=== PATIENT | male | born 1960 | race Caucasian/White ===

== ENCOUNTER 2017-04-09 15:18 | Emergency (ER) | payer MEDICAID ==
[~2017-04-09] VITALS: Ht 177.8 cm; Wt 78.0 kg
[~2017-04-09 15:18] MED LIST: HYDR-3535 PO; LANTUS2P SC; NOVORP2 SQ
[2017-04-09 16:04] VITALS: BP 140/67; PULSE 89; RESP 16; TEMP 98.8; O2SAT 97
[2017-04-09 16:20] VITALS: BP 150/89; PULSE 88; RESP 16; TEMP 97.9; O2SAT 95
[2017-04-09] MEDS ORDERED: PROP60CA PO (16:28)
[2017-04-09] MEDS ORDERED: CREO3000 PO (16:28)
[2017-04-09] MEDS ORDERED: SODIUM CHLOR 0.9% 1000 ML INJ 1,000 ML IV SCH (16:35)
[2017-04-09] MEDS ORDERED: ONDANSETRON HCL 4 MG/2 ML VIAL IVP ONE (16:45)
[2017-04-09] MEDS ORDERED: SODIUM CHLORIDE 0.9% FLUSH 10 ML FLUSH IV FLUSH PRN (16:45)
--- NOTE | 2017-04-09 16:46 | PD ---
HPI Chief Complaint: Abdominal Pain Time Seen by Provider: 16:22 Travel History International Travel<30 days: No Contact w/Intl Traveler<30days: No Traveled to known affect area: No History of Present Illness HPI Patient is 56-year-old male presenting to emergency evaluation of right lower quadrant abdominal pain. Patient states it started yesterday afternoon at 1 PM. He reports nausea but no vomiting, fever, chills, chest pain, shortness of breath. He states he ran out of his insulin yesterday and thinks he could have pancreatitis. Patient states the pain is abdomen is a 7 out of 10, it is aching and throbbing. He has no primary doctor at this time. He reports a history of type 2 diabetes, hepatitis C, hypertension, pancreatitis. He had been [facility] but states due to poor medical care he is not going back there. Patient smokes half a pack of cigarettes daily, he denies any alcohol or drug use. PFSH Past Medical History Cardiovascular Problems: No Cirrhosis: Yes Diabetes: Yes Patient Takes Glucophage: No Diminished Hearing: No Gastrointestinal Disorders: Yes (esophageal varices, pancreatitis) Genitourinary: No Hepatitis: Yes (C) Hypertension: Yes Musculoskeletal: Yes Neurologic: No Reproductive: No Respiratory: No Pancreatitis: Yes Past Surgical History Pacemaker: No Social History Alcohol Use: No Tobacco Use: Yes (1/2 ppd) Substance Use: No Allergies-Medications (Allergen,Severity, Reaction): Coded Allergies: codeine (Unverified Allergy, Severe, ANAPHYLAXIS, 04/09/17) penicillin G (Unverified Allergy, Severe, ANAPHYLAXIS, 04/09/17) Reported Meds & Prescriptions Reported Meds & Active Scripts Active Reported Creon (Pancrelipase) 3,000-9,500-15,000 Units Cap Unknown Dose PO TIDPC Propranolol ER 24 HR (Propranolol HCl) 60 Mg Cap Unknown Dose PO DAILY Review of Systems Except as stated in HPI: all other systems reviewed are Neg HENT: No: Headaches Cardiovascular: No: Chest Pain or Discomfort Respiratory: No: Shortness of Breath Gastrointestinal: Positive: Nausea, Abdominal Pain, No: Vomiting, Diarrhea, Changes in Bowel Habits Genitourinary: No: Dysuria Physical Exam Narrative GENERAL: Thin, well-developed, alert male. Resting comfortably in no acute distress. SKIN: Warm and dry. HEAD: Atraumatic. Normocephalic. EYES: Pupils equal and round. No scleral icterus. No injection or drainage. ENT: No nasal bleeding or discharge. Mucous membranes pink and moist. NECK: Trachea midline. No JVD. CARDIOVASCULAR: Regular rate and rhythm. RESPIRATORY: No accessory muscle use. Clear to auscultation. Breath sounds equal bilaterally. GASTROINTESTINAL: Abdomen soft, mildly tender to palpation in right lower quadrant, nondistended. Hepatic and splenic margins not palpable. Positive bowel sounds, no rebound, no guarding. MUSCULOSKELETAL: Extremities without clubbing, cyanosis, or edema. No obvious deformities. NEUROLOGICAL: Awake and alert. No obvious cranial nerve deficits. Motor grossly within normal limits. Five out of 5 muscle strength in the arms and legs. Normal speech. PSYCHIATRIC: Appropriate mood and affect; insight and judgment normal. Data Data Last Documented VS Vital Signs Date Time Temp Pulse Resp B/P (MAP) Pulse Ox O2 Delivery O2 Flow Rate FiO2 04/09/17 16:20 97.9 88 16 150/89 (109) 95 Room Air Orders Orders Complete Blood Count With Diff (04/09/17 16:07) Comprehensive Metabolic Panel (04/09/17 16:07) Urinalysis - C+S If Indicated (04/09/17 16:07) Iv Access Insert/Monitor (04/09/17 16:07) Lipase (04/09/17 16:07) Prothrombin Time / Inr (Pt) (04/09/17 16:35) Act Partial Throm Time (Ptt) (04/09/17 16:35) Ct Abd/Pel W Iv Contrast(Rout) (04/09/17 16:35) Ecg Monitoring (04/09/17 16:35) Oximetry (04/09/17 16:35) Ondansetron Inj (Zofran Inj) (04/09/17 16:45) Sodium Chlor 0.9% 1000 Ml Inj (Ns 1000 M (04/09/17 16:35) Sodium Chloride 0.9% Flush (Ns Flush) (04/09/17 16:45) Vascular Access Team Consult/P PRN (04/09/17 17:08) Vascular Poc Ultrasound (04/09/17 ) Ketorolac Inj (Toradol Inj) (04/09/17 17:30) Insulin Human Regular Inj (Novolin R Inj (04/09/17 19:00) Sodium Chlor 0.9% 1000 Ml Inj (Ns 1000 M (04/09/17 19:00) Iohexol 350 Inj (Omnipaque 350 Inj) (04/09/17 19:33) Labs Laboratory Tests Test 04/09/17 16:49 04/09/17 17:58 Urine Color LIGHT-YELLOW Urine Turbidity CLEAR Urine pH 5.5 Urine Specific [place] 1.035 Urine Protein NEG mg/dL Urine Glucose (UA) 1000 mg/dL Urine Ketones NEG mg/dL Urine Occult Blood NEG Urine Nitrite NEG Urine Bilirubin NEG Urine Urobilinogen LESS THAN 2.0 MG/DL Urine Leukocyte Esterase NEG Urine RBC LESS THAN 1 /hpf Urine WBC 1 /hpf Microscopic Urinalysis Comment CULT NOT INDICATED White Blood Count 7.1 TH/MM3 Red Blood Count 3.76 MIL/MM3 Hemoglobin 13.8 GM/DL Hematocrit 38.7 % Mean Corpuscular Volume 102.9 FL Mean Corpuscular Hemoglobin 36.7 PG Mean Corpuscular Hemoglobin Concent 35.7 % Red Cell Distribution Width 16.8 % Platelet Count 102 TH/MM3 Mean Platelet Volume 9.0 FL Neutrophils (%) (Auto) 65.1 % Lymphocytes (%) (Auto) 19.3 % Monocytes (%) (Auto) 10.0 % Eosinophils (%) (Auto) 4.5 % Basophils (%) (Auto) 1.1 % Neutrophils # (Auto) 4.6 TH/MM3 Lymphocytes # (Auto) 1.4 TH/MM3 Monocytes # (Auto) 0.7 TH/MM3 Eosinophils # (Auto) 0.3 TH/MM3 Basophils # (Auto) 0.1 TH/MM3 CBC Comment DIFF FINAL Differential Comment Prothrombin Time 12.3 SEC Prothromb Time International Ratio 1.1 RATIO Activated Partial Thromboplast Time 30.0 SEC Blood Urea Nitrogen 8 MG/DL Creatinine 0.59 MG/DL Random Glucose 434 MG/DL Total Protein 5.6 GM/DL Albumin 2.3 GM/DL Calcium Level 7.6 MG/DL Alkaline Phosphatase 292 U/L Aspartate Amino Transf (AST/SGOT) 76 U/L Alanine Aminotransferase (ALT/SGPT) 72 U/L Total Bilirubin 1.8 MG/DL Sodium Level 133 MEQ/L Potassium Level 3.9 MEQ/L Chloride Level 103 MEQ/L Carbon Dioxide Level 22.7 MEQ/L Anion Gap 7 MEQ/L Estimat Glomerular Filtration Rate 143 ML/MIN Lipase 332 U/L [facility] Medical Decision Making Medical Screen Exam Complete: Yes Emergency Medical Condition: Yes Interpretation(s) Laboratory Tests Test 04/09/17 16:49 04/09/17 17:58 Urine Color LIGHT-YELLOW Urine Turbidity CLEAR Urine pH 5.5 Urine Specific [place] 1.035 Urine Protein NEG mg/dL Urine Glucose (UA) 1000 mg/dL Urine Ketones NEG mg/dL Urine Occult Blood NEG Urine Nitrite NEG Urine Bilirubin NEG Urine Urobilinogen LESS THAN 2.0 MG/DL Urine Leukocyte Esterase NEG Urine RBC LESS THAN 1 /hpf Urine WBC 1 /hpf Microscopic Urinalysis Comment CULT NOT INDICATED White Blood Count 7.1 TH/MM3 Red Blood Count 3.76 MIL/MM3 Hemoglobin 13.8 GM/DL Hematocrit 38.7 % Mean Corpuscular Volume 102.9 FL Mean Corpuscular Hemoglobin 36.7 PG Mean Corpuscular Hemoglobin Concent 35.7 % Red Cell Distribution Width 16.8 % Platelet Count 102 TH/MM3 Mean Platelet Volume 9.0 FL Neutrophils (%) (Auto) 65.1 % Lymphocytes (%) (Auto) 19.3 % Monocytes (%) (Auto) 10.0 % Eosinophils (%) (Auto) 4.5 % Basophils (%) (Auto) 1.1 % Neutrophils # (Auto) 4.6 TH/MM3 Lymphocytes # (Auto) 1.4 TH/MM3 Monocytes # (Auto) 0.7 TH/MM3 Eosinophils # (Auto) 0.3 TH/MM3 Basophils # (Auto) 0.1 TH/MM3 CBC Comment DIFF FINAL Differential Comment Prothrombin Time 12.3 SEC Prothromb Time International Ratio 1.1 RATIO Activated Partial Thromboplast Time 30.0 SEC Blood Urea Nitrogen 8 MG/DL Creatinine 0.59 MG/DL Random Glucose 434 MG/DL Total Protein 5.6 GM/DL Albumin 2.3 GM/DL Calcium Level 7.6 MG/DL Alkaline Phosphatase 292 U/L Aspartate Amino Transf (AST/SGOT) 76 U/L Alanine Aminotransferase (ALT/SGPT) 72 U/L Total Bilirubin 1.8 MG/DL Sodium Level 133 MEQ/L Potassium Level 3.9 MEQ/L Chloride Level 103 MEQ/L Carbon Dioxide Level 22.7 MEQ/L Anion Gap 7 MEQ/L Estimat Glomerular Filtration Rate 143 ML/MIN Lipase 332 U/L Vital Signs Date Time Temp Pulse Resp B/P (MAP) Pulse Ox O2 Delivery O2 Flow Rate FiO2 04/09/17 16:20 97.9 88 16 150/89 (109) 95 Room Air 04/09/17 16:04 98.8 89 16 140/67 (91) 97 Differential Diagnosis Pancreatitis versus appendicitis versus hyperglycemia versus DKA versus metabolic abnormality versus other Narrative Course Patient is a 56-year-old male presenting for evaluation of abdominal pain. He reports being out of his insulin since yesterday, he is a type II diabetic. Patient's vital signs are stable, labs and imaging ordered and pending. Chemistry with a glucose of 434, sodium 133, bilirubin 1.8, AST 76, anion gap is normal. CBC with no acute findings Urinalysis with glycosuria at [address] scan of the abdomen and pelvis ordered and pending. When glucose resulted at 434, 10 units of regular insulin subcutaneous was ordered as well as additional IV fluids. CT abdomen and pelvis just read by the radiologist shows characteristics of severe cirrhosis and portal hypertension. Liver is small and nodular, there are cavernous transformation of portal vein with prominence of splenic it's. Mesenteric veins as well as very prominent splenorenal shunt with varus custody is identified and splenic hilum and at the base of the esophagus. Minimal abdominal ascites. Diverticular disease of the descending and sigmoid colon without diverticulitis. Findings were discussed with my attending physician, Dr. Perry. Blood glucose was reassessed at 350. Patient was given a dinner meal. He was covered with an additional 10 units of regular insulin. Patient will be provided with prescription refills of his insulins. He was advised to follow- up at the [facility] until he can establish with a new primary doctor. He was advised to return to emergency department for any new or worsening symptoms. Patient verbalized understanding of instructions. Diagnosis Primary Impression: Abdominal pain Qualified Codes: R10.31 - Right lower quadrant pain Additional Impression: Hyperglycemia due to type 2 diabetes mellitus Qualified Codes: E11.65 - Type 2 diabetes mellitus with hyperglycemia Referrals: [facility] 3 days Primary Care Physician 3 days Patient Instructions: Abdominal Pain (ED), Diabetic Hyperglycemia (ED), General Instructions, Portal Hypertension (ED) Additional Instructions: Take all medications as previously prescribed Check blood glucose before meals and before bedtime, continue insulin as previously prescribed Follow-up with the [facility] Return to emergency department for any new or worsening symptoms Med/Other Pt SpecificInfo: Prescription(s) given Scripts Insulin Aspart Inj (Novolog Inj) 1,000 Unit/10 Ml Vial 5-25 UNITS SQ ACHS for Blood Sugar Management, #10 ML 1 Refill Max dose at bedtime:( )units; sugars less than 70,(0) units; sugars 150-199,(5) units; sugars 200-249,(10) units; sugars 250-299,(15) units; sugars 300-349,(20)units; sugars greater than 349,(25)units Prov: Kacey Hsu 04/09/17 Insulin Glargine Inj (Lantus Inj) 100 Unit/Ml Inj 20 UNITS SQ DAILY, #1 1 Refill Prov: Kacey Hsu 04/09/17 Disposition: 01 DISCHARGE HOME Condition: Stable Kacey Hsu Apr 09, 2017 16:46
[2017-04-09 17:07] LABS: BLOOD, URINE NEG (NEG); GLUCOSE,URINE 1000 mg/dL (NEG); KETONE, URINE NEG (NEG); NITRITE,URINE NEG (NEG); PH, URINE 5.5 (5.0-8.5); URINE COLOR LIGHT-YELLOW (YELLW/STRAW)
[2017-04-09 17:09] LABS: COMMENT (UR) CULT NOT INDICATED; CULTURE IF INDICATED CULT NOT INDICATED
[2017-04-09] MEDS ORDERED: KETOROLAC TROMETHAMINE 30 MG/ML (IVP) VIAL IV PUSH ONE (17:30)
[2017-04-09 18:22] LABS: AUTOMATED NEUTROPHIL # 4.6 TH/MM3 (1.8-7.7); BASOPHIL # 0.1 TH/MM3 (0-0.2); BASOPHIL % 1.1 % (0.0-2.0); EOSINOPHIL # 0.3 TH/MM3 (0-0.4); EOSINOPHIL % 4.5 % (0.0-4.0); HEMATOCRIT 38.7 % (39.0-51.0); HEMO FLAGS DIFF FINAL; LYMPH % 19.3 % (9.0-44.0); LYMPHOCYTE # 1.4 TH/MM3 (1.0-4.8); MEAN CELL VOLUME 102.9 FL (80.0-100.0); MEAN CORPUSCULAR HEMOGLOBIN 36.7 PG (27.0-34.0); MEAN CORPUSCULAR HGB CONC 35.7 % (32.0-36.0); NEUT % 65.1 % (16.0-70.0); PLATELET COUNT 102 TH/MM3 (150-450); RED BLOOD COUNT 3.76 MIL/MM3 (4.50-5.90); RED CELL DISTRIBUTION WIDTH 16.8 % (11.6-17.2); WHITE BLOOD COUNT 7.1 TH/MM3 (4.0-11.0)
[2017-04-09 18:39] LABS: INTERNATIONAL NORMALIZED RATIO 1.1 RATIO; PROTHROMBIN TIME - PATIENT 12.3 SEC (9.8-11.6)
[2017-04-09 18:41] LABS: ALT (GPT) 72 U/L (12-78); ANION GAP 7 MEQ/L (5-15); AST (GOT) 76 U/L (15-37); BICARBONATE 22.7 MEQ/L (21.0-32.0); BLOOD UREA NITROGEN 8 MG/DL (7-18); CHLORIDE 103 MEQ/L (98-107); GLOMERULAR FILTRATION RATE 143 ML/MIN (>89); POTASSIUM 3.9 MEQ/L (3.5-5.1); SODIUM (NA) 133 MEQ/L (136-145)
[2017-04-09 18:42] LABS: ALKALINE PHOSPHATASE 292 U/L (45-117); TOTAL BILIRUBIN ADULT 1.8 MG/DL (0.2-1.0)
[2017-04-09] MEDS ORDERED: INSULIN HUMAN REGULAR 1,000 UNITS/10 ML VIAL SQ ONE ×2 (19:00→21:00)
[2017-04-09] MEDS ORDERED: SODIUM CHLOR 0.9% 1000 ML INJ 1,000 ML IV ONE (19:00)
[2017-04-09] MEDS ORDERED: IOHEXOL 350 MG/ML 10 ML VIAL (for RAD DIAG) IVCONTRAST ONE (19:33)
--- NOTE | 2017-04-09 20:26 | RADRPT ---
EXAM DATE/TIME: 04/09/2017 19:21 [facility] COMPARISON: CT ABDOMEN & PELVIS W CONTRAST, April 09, 2014, 2:40. INDICATIONS : Abdominal pain. IV CONTRAST: 100 cc Omnipaque 350 (iohexol) IV ORAL CONTRAST: No oral contrast ingested. RADIATION DOSE: 6.73 CTDIvol (mGy) MEDICAL HISTORY : Pancreatitis. Diabetes mellitus type 2. SURGICAL HISTORY : Hip replacement. ENCOUNTER: Initial ACUITY: 2 days PAIN SCALE: 9/10 LOCATION: abdomen TECHNIQUE: Volumetric scanning of the abdomen and pelvis was performed. Using automated exposure control and ad justment of the mA and/or kV according to patient size, radiation dose was kept as low as reasonably achievable to obtain optimal diagnostic quality images. DICOM format image data is available electro nically for review and comparison. FINDINGS: LOWER LUNGS: The visualized lower lungs are clear. LIVER: Small and nodular characteristic of cirrhosis. There is cavernous transformation of the portal vein w ith a markedly enlarged splenic and superior mesenteric veins. In addition, very large perisplenic co llaterals with a very prominent splenorenal shunt characteristic of portal hypertension. Small varico sities are seen around the esophagus near the GE junction as well. SPLEEN: Normal size without lesion. PANCREAS: Within normal limits. KIDNEYS: Normal in size and shape. There is no mass, stone or hydronephrosis. ADRENAL GLANDS: Within normal limits. VASCULAR: There is no aortic aneurysm. BOWEL/MESENTERY: Scattered abdominal ascites. There is insufficient volume to drain percutaneously. Some diverticular disease of the descending and sigmoid colon without diverticulitis. ABDOMINAL WALL: Within normal limits. RETROPERITONEUM: There is no lymphadenopathy. BLADDER: No wall thickening or mass. REPRODUCTIVE: Within normal limits. INGUINAL: There is no lymphadenopathy or hernia. MUSCULOSKELETAL: Within normal limits for patient age. Incidental note is made of partial sacralization of the left si de of L5. CONCLUSION: 1. CT findings characteristic of severe cirrhosis with portal hypertension. Liver is small and nodula r, there is cavernous transformation of the portal vein with prominence of the splenic and superior m esenteric veins as well as a very prominent splenorenal shunt with varicosities identified in the spl enic hilum and at the base of the esophagus. 2. Minimal abdominal ascites. 3. Diverticular disease of the descending and sigmoid colon without diverticulitis. Dionisio Berry MD on April 09, 2017 at 20:19 Board Certified Radiologist. This report was verified electronically.
[2017-04-09] MEDS ORDERED: NOVOLOGP2 SQ (20:52)
[2017-04-09] MEDS ORDERED: LANTUS2P SQ (20:52)
[2017-04-09 21:25] VITALS: BP 142/72
== END 2017-04-09 21:29 | disposition home or self-care (01) ==
LOC: NEPE 15:18
DX: R10.31 Right lower quadrant pain (principal); R11.0 Nausea; E11.65 Type 2 diabetes mellitus with hyperglycemia; K74.60 Unspecified cirrhosis of liver; K76.6 Portal hypertension; F17.210 Nicotine dependence, cigarettes, uncomplicated; Z86.19 Personal history of other infectious and parasitic diseases; Z87.19 Personal history of other diseases of the digestive system; Z79.899 Other long term (current) drug therapy
CPT/HCPCS: 74177; 80053; 81001; 83690; 85025; 85610; 85730; 96361; 96372; 96374; 96375; 99285; J1815; J1885; J2405; J7030; Q9967